=== PATIENT | male | born 1980 | race Caucasian/White ===

== ENCOUNTER 2024-01-17 07:51 | Emergency (ER) | payer OTHER ==
[2024-01-17 08:11] VITALS: BP 141/96; PULSE 89; RESP 18; TEMP 98.2; BMI 25.0
[2024-01-17] MEDS ORDERED: KETOROLAC TROMETHAMINE 30 MG/1 ML VIAL ONE (08:48)
[2024-01-17] MEDS: KETOROLAC TROMETHAMINE 30 MG/1 ML VIAL IM ONE (08:52)
== END 2024-01-17 08:58 | disposition home or self-care (01) ==
LOC: JER 07:51 → JERFT 07:51
PROC: 3E0233Z Introduction of Anti-inflammatory into Muscle, Percutaneous Approach (ICD-10-PCS; principal; 2024-01-17)
DX: R21 Rash and other nonspecific skin eruption (principal); B02.9 Zoster without complications
CPT/HCPCS: 99284-25

== ENCOUNTER 2024-01-19 09:13 | Emergency (ER) | payer OTHER ==
[2024-01-19 09:19] VITALS: BMI 25.0
[2024-01-19] MEDS ORDERED: morphine SULFATE 4 MG/ML VIAL ONE ×2 (11:25→18:36)
[2024-01-19] MEDS: morphine CARPU-JECT 4 MG/1 ML DISP.SYRIN IVPUSH ONE ×2 (11:38→18:40)
[2024-01-19 11:58] LABS: HEMATOCRIT 44.4 % (35.4-49); MCH 30.7 pg (25.7-33.7); MCHC 33.8 g/dl (32.0-35.9); MEAN CELL VOLUME 90.9 fl (80-96); MEAN PLT VOLUME 7.9 fl (7.5-11.1); PLATELET COUNT 249 10^3/uL (134-434); RBC 4.89 M/mm3 (4.00-5.60); RDW 14.1 % (11.9-15.9); WHITE BLOOD COUNT 3.5 K/mm3 (4.0-10.0)
[2024-01-19 12:07] LABS: INR 1.02 (0.83-1.09); PROTHROMBIN TIME (PATIENT) 11.8 SEC (9.7-13.0)
[2024-01-19 12:10] LABS: ACTIVATED PTT 28.5 SECONDS (25.2-36.5)
[2024-01-19 12:16] LABS: CHLORIDE 97 mmol/L (98-107); SODIUM 134 mmol/L (136-145)
[2024-01-19 12:18] LABS: CALCIUM 9.9 mg/dL (8.5-10.1)
[2024-01-19 12:19] LABS: ALBUMIN 3.8 g/dl (3.4-5.0); BLOOD UREA NITROGEN 9.7 mg/dL (7-18); CO2 27 mmol/L (21-32); GLUCOSE,RANDOM 107 mg/dL (74-106)
[2024-01-19 12:22] LABS: CREATININE 0.8 mg/dL (0.55-1.3); SGOT/AST 53 U/L (15-37); SGPT/ALT 64 U/L (13-61)
[2024-01-19 12:24] LABS: BILIRUBIN,TOTAL 0.5 mg/dL (0.2-1); TOT PROT 8.5 g/dl (6.4-8.2)
[2024-01-19 12:25] LABS: ALK PHOS 53 U/L (45-117); ANION GAP 10 mmol/L (4-13); POTASSIUM 6.4 mmol/L (3.5-5.1)
[2024-01-19] MEDS ORDERED: FLUORESCEIN NA 1 EA STRIP ONE (12:28)
[2024-01-19] MEDS ORDERED: TETRACAINE 0.5% OPHTH SOLN 2 ML BOTTLE ONE (12:28)
[2024-01-19] MEDS: TETRACAINE 0.5% HCL 0.6ML DROPPER.BOTTLE OP ONE (12:40)
[2024-01-19] MEDS: FLUORESCEIN NA 1 EA STRIP OD ONE (12:40)
[2024-01-19 12:54] LABS: ANISOCYTOSIS 0; HELMET CELLS 0; HOWELL-JOLLY BODIES 0; MACROCYTOSIS 0; OVALOCYTE 0; ROULEAU 0; SICKELED CELLS 0; TARGET CELLS 0; TEAR DROP CELLS 0; TOXIC GRANULATION 0
[2024-01-19 12:59] LABS: ERYTHROCYTE SEDIMENTATION RATE 6 mm/hr (0-10)
[2024-01-19 14:59] LABS: BLOOD UREA NITROGEN 10.5 mg/dL (7-18); CALCIUM 9.4 mg/dL (8.5-10.1)
[2024-01-19 15:02] LABS: CREATININE 0.8 mg/dL (0.55-1.3)
[2024-01-19] MEDS: LACTATED RINGERS SOLUTION 1000 ML INFUS.BAG IV ONE (15:04)
[2024-01-19] MEDS ORDERED: ACETAMINOPHEN INJECTION 100 ML IVPB ONE (16:37)
[2024-01-19] MEDS: ACETAMINOPHEN 1000 MG/100 ML BAG IVPB ONE (16:40)
[2024-01-19] MEDS ORDERED: VANCOMYCIN 1 GRAM (PRE-DOCKED) 1,000 MG/250 ML BAG IVPB ONE (17:06)
[2024-01-19] MEDS: VANCOMYCIN 1,000 MG in DEXTROSE 5%-WATER - 250 ML IVPB ONE (17:30)
[2024-01-19] MEDS: SODIUM CHLORIDE 0.9% 500 ML INFUS.BAG IV ONE (18:30)
[2024-01-19 19:12] VITALS: BP 165/98; PULSE 90; RESP 19; TEMP 98.1
== END 2024-01-19 19:16 | disposition short-term general hospital (02) ==
LOC: JER 09:13
PROC: 3E03329 Introduction of Other Anti-infective into Peripheral Vein, Percutaneous Approach (ICD-10-PCS; principal; 2024-01-19)
PROC: 3E033NZ Introduction of Analgesics, Hypnotics, Sedatives into Peripheral Vein, Percutaneous Approach (ICD-10-PCS; 2024-01-19)
PROC: 3E033GC Introduction of Other Therapeutic Substance into Peripheral Vein, Percutaneous Approach (ICD-10-PCS; 2024-01-19)
PROC: 3E033GC Introduction of Other Therapeutic Substance into Peripheral Vein, Percutaneous Approach (ICD-10-PCS; 2024-01-19)
PROC: 3E033GC Introduction of Other Therapeutic Substance into Peripheral Vein, Percutaneous Approach (ICD-10-PCS; 2024-01-19)
DX: R21 Rash and other nonspecific skin eruption (principal); H57.12 Ocular pain, left eye; B02.22 Postherpetic trigeminal neuralgia; L03.213 Periorbital cellulitis; Z20.822 Contact with and (suspected) exposure to COVID-19
CPT/HCPCS: 0241U-QW; 36415; 70481-TC; 80048; 80053; 85025; 85610; 85651; 85730; 86140; 86850; 86900; 86901; 87040; 93005; 93010; 99285-25; J0131; Q9967

== ENCOUNTER 2024-02-23 06:28 | Emergency (ER) | payer OTHER ==
[2024-02-23 07:09] VITALS: BMI 28.1
[2024-02-23] MEDS: LACTATED RINGERS SOLUTION 1000 ML INFUS.BAG IV ONE (07:30)
[2024-02-23] MEDS ORDERED: ACETAMINOPHEN INJECTION 100 ML IVPB ONE (07:50)
[2024-02-23] MEDS: ACETAMINOPHEN 1000 MG/100 ML BAG IVPB ONE (07:50)
[2024-02-23 08:14] LABS: INR 0.97 (0.83-1.09); PROTHROMBIN TIME (PATIENT) 11.3 SEC (9.7-13.0)
[2024-02-23 08:17] LABS: ACTIVATED PTT 25.7 SECONDS (25.2-36.5)
[2024-02-23 08:28] LABS: POTASSIUM 4.3 mmol/L (3.5-5.1)
[2024-02-23 08:31] LABS: ALBUMIN 3.3 g/dl (3.4-5.0); BLOOD UREA NITROGEN 16.4 mg/dL (7-18)
[2024-02-23 08:34] LABS: CREATININE 0.8 mg/dL (0.55-1.3)
[2024-02-23 08:35] LABS: BILIRUBIN,TOTAL 0.3 mg/dL (0.2-1); TOT PROT 6.6 g/dl (6.4-8.2)
[2024-02-23 08:37] LABS: BASO % 0.5 % (0-2.0); HEMATOCRIT 37.8 % (35.4-49); HEMOGLOBIN 12.9 GM/dL (11.7-16.9); LYMPH % 32.2 % (8-40); MCH 31.1 pg (25.7-33.7); MCHC 34.2 g/dl (32.0-35.9); MEAN CELL VOLUME 90.9 fl (80-96); MEAN PLT VOLUME 8.5 fl (7.5-11.1); NEUT % 49.3 % (42.8-82.8); PLATELET COUNT 271 10^3/uL (134-434); RBC 4.16 M/mm3 (4.00-5.60); RDW 14.2 % (11.9-15.9); WHITE BLOOD COUNT 4.4 K/mm3 (4.0-10.0)
[2024-02-23] MEDS ORDERED: KETOROLAC TROMETHAMINE 15 MG/ML VIAL ONE (09:08)
[2024-02-23] MEDS: KETOROLAC TROMETHAMINE 15 MG/ML VIAL IVPUSH ONE (09:16)
[2024-02-23 09:22] LABS: PH,URINE 5.5 (5.0-8.0); URINE APPEARANCE CLEAR; URINE BILIRUBIN NEGATIVE (NEGATIVE); URINE COLOR YELLOW; URINE GLUCOSE (UA) NEGATIVE (NEGATIVE); URINE KETONE TRACE (NEGATIVE); URINE LEUK ESTERASE NEGATIVE (NEGATIVE); URINE NITRITE NEGATIVE (NEGATIVE); URINE PROTEIN NEGATIVE (NEGATIVE); URINE UROBILINOGEN 0.2 mg/dL (0.2-1.0)
[2024-02-23 09:35] VITALS: BP 124/80; PULSE 80; RESP 20; TEMP 97.9
== END 2024-02-23 09:38 | disposition home or self-care (01) ==
LOC: JER 06:28
PROC: 3E030NZ Introduction of Analgesics, Hypnotics, Sedatives into Peripheral Vein, Open Approach (ICD-10-PCS; principal; 2024-02-23)
PROC: 3E030GC Introduction of Other Therapeutic Substance into Peripheral Vein, Open Approach (ICD-10-PCS; 2024-02-23)
DX: R42 Dizziness and giddiness (principal); R00.2 Palpitations; R51.9 Headache, unspecified; R20.0 Anesthesia of skin; Z20.822 Contact with and (suspected) exposure to COVID-19
CPT/HCPCS: 0241U-QW; 36415; 71045-TC-FY; 80053; 81003; 82962; 84484; 85025; 85610; 85730; 87086; 93005; 93010; 99285-25; J0131